=== PATIENT | female | born 1975 | race Asian ===

== ENCOUNTER → 2021-09-16 10:01 | Outpatient (CLI) | payer OTHER, SELFPAY ==
--- NOTE | 2021-09-16 | DI.MG.S_ITS ---
BILATERAL DIGITAL SCREENING MAMMOGRAM 3D/2D WITH CAD: 09/16/2021 CLINICAL: Routine screening. Comparison is made to exams dated: [facility], [facility] mamm[facility], and 03/20/2018 mammogram - [facility]. The tissue of both breasts is extremely dense, which lowers the sensitivity of mammography. Current study was also evaluated with a Computer Aided Detection (CAD) system. No significant masses, calcifications, or other findings are seen in either breast. There has been no significant interval change. IMPRESSION: NEGATIVE There is no mammographic evidence of malignancy. A 1 year screening mammogram is recommended. This exam was interpreted at Station ID: [id number]. NOTE: For mammograms, a report in lay terms will be sent to the patient. Approximately 15% of breast malignancies will not be visualized mammographically. In the management of a palpable breast mass, a negative mammogram must not discourage biopsy of a clinically suspicious lesion. Electronically Signed By: Estelita escobar/samara:09/18/2021 09:55:01 letter sent: Normal Exam ACR BI-RADS Category 1: Negative 3341F
== END ==
PROVIDERS: Referring Provider Family Medicine; Visit Provider Family Medicine
DX: Z12.31 Encounter for screening mammogram for malignant neoplasm of breast (principal)
CPT/HCPCS: 77063; 77067

== ENCOUNTER 2025-03-17 07:40 | Day surgery (SDC) | payer OTHER, SELFPAY ==
[2025-03-17 08:00] VITALS: BP 127/79; PULSE 62; RESP 16; TEMP 36.4; O2SAT 99
[2025-03-17] MEDS: LACTATED RINGERS 1,000 ML 42 ML IV (08:02)
--- NOTE | 2025-03-17 08:25 | PM.HP.IH.1 ---
History of Present Illness History of Present Illness Date Patient Seen: 03/17/25 Chief complaint: SDC Narrative: For screening colonoscopy. Attempt within the year had a poor preparation. PFSH Social History Smoking Status: Never smoker Meds Home Medications and Allergies Home Medications Medication Instructions Recorded Confirmed Type No Known Home Medications 03/17/25 03/17/25 History Allergies Allergy/AdvReac Type Severity Reaction Status Date / Time No Known Drug Allergies Allergy Verified 03/17/25 07:52 Exam Vital Signs (past 8 hours): - 03/17/25 08:00 Temperature 97.6 F Pulse Rate 62 Respiratory Rate 16 Blood Pressure 127/79 Pulse Oximetry 99 Oxygen Delivery Method Room Air Oxygen Delivery Method Room Air Narrative Exam Narrative: Oropharynx free of lesions Chest clear to auscultation percussion Cardiac exam reveals no S3 or murmur Assessment & Plan Assessment & Plan narrative: Need for 1st screening colonoscopy. Had more extensive preparation this time. Risks, benefits, alternatives have been explained. Time-Based Coding :: [TOTAL MINUTES] spent with patient and on the chart (including review of chart, obtaining history, exam, reviewing outside data, placing orders, documenting exam and treatment plan, and counseling patient) on [DATE]. PROFEE Physical Therapist Clinic Director Document charge(s): No
--- NOTE | 2025-03-17 08:27 | PM.OP.COLON ---
Operative Date/Time/Diagnoses Date of procedure: 03/17/25 Pre-op diagnosis: See indication and findings Procedure & Clinicians Study performed: Colonoscopy Same procedure as scheduled: Yes Indications: For screening colonoscopy Surgeon: Mckay Green Procedure Notes Procedure in detail: After informed consent was obtained the patient was placed in left lateral decubitus position. The video colonoscope was introduced the rectum slowly advanced cecum. Preparation was good. On slow withdrawal mucosa was carefully examined. The scope was removed. The patient tolerated procedure well. Blood loss none Complications none Sedation mac Findings 1. Normal colonoscopy to cecum Patient needs follow-up colonoscopy in 10 years
[2025-03-17 09:14] VITALS: BP 88/64; PULSE 64; RESP 14; TEMP 36.8; O2SAT 98
[2025-03-17 09:23] VITALS: BP 94/51; PULSE 61; RESP 14; TEMP 36.7; O2SAT 98
[2025-03-17 09:28] VITALS: BP 96/54; PULSE 60; RESP 18; TEMP 36.6; O2SAT 100
[2025-03-17 09:35] VITALS: BP 102/75; PULSE 66; RESP 14; TEMP 36.7; O2SAT 100
== END 2025-03-17 09:46 | disposition home or self-care (01) ==
PROVIDERS: PCP Family Medicine; Referring Provider Internal Medicine Gastroenterology; Visit Provider Internal Medicine Gastroenterology
PROC: 0DJD8ZZ Inspection of Lower Intestinal Tract, Via Natural or Artificial Opening Endoscopic (ICD-10-PCS; CPT 45378; principal; 2025-03-17 09:00)
DX: Z12.11 Encounter for screening for malignant neoplasm of colon (principal)
CPT/HCPCS: 45378; J2704